=== PATIENT | male | born 1995 | race Caucasian/White ===

== ENCOUNTER 2020-05-23 23:17 | Emergency (ER) | payer SELFPAY ==
[2020-05-24] MEDS ORDERED: Sulfameth/Trimethoprim DS 800-160mg TAB ONE (00:45)
== END 2020-05-24 00:46 | disposition home or self-care (01) ==
LOC: CSHERS 23:17
DX: L03.116 Cellulitis of left lower limb (principal); L03.115 Cellulitis of right lower limb; F17.210 Nicotine dependence, cigarettes, uncomplicated
CPT/HCPCS: 99283